=== PATIENT | male | born 1955 | race Caucasian/White ===

== ENCOUNTER 2021-02-19 07:34 | Emergency (ER) | payer MEDICARE ==
[~2021-02-19] VITALS: Ht 177.8 cm; Wt 98.9 kg
[2021-02-19] MEDS ORDERED: ATENOLOL50 MG PO (08:08)
[2021-02-19] MEDS ORDERED: ELIQUIS5 MG PO (08:08)
[2021-02-19] MEDS ORDERED: METFORMIN HCL500 MG PO (08:08)
[2021-02-19] MEDS ORDERED: LOSARTAN-HCTZ1 EAC1 (08:08)
[2021-02-19] MEDS ORDERED: ATORVASTATIN CA20 MG PO (08:08)
[2021-02-19] MEDS ORDERED: PLAVIX75 MG PO (08:08)
[2021-02-19] MEDS ORDERED: AMLODIPINE BESY10 MG PO (08:08)
[2021-02-19 08:26] VITALS: BP 158/98
== END 2021-02-19 08:30 | disposition home or self-care (01) ==
LOC: FSED 08:15
DX: R33.9 Retention of urine, unspecified (principal); I10 Essential (primary) hypertension; E11.9 Type 2 diabetes mellitus without complications; E78.5 Hyperlipidemia, unspecified; I25.10 Atherosclerotic heart disease of native coronary artery without angina pectoris; Z95.1 Presence of aortocoronary bypass graft
CPT/HCPCS: 51700; 81003; 99283

== ENCOUNTER 2021-09-30 14:07 | Emergency (ER) | payer MEDICARE, OTHER ==
[~2021-09-30] VITALS: Ht 177.8 cm; Wt 95.3 kg
[~2021-09-30 14:07] MED LIST: AMLODIPINE BESY10 MG PO; ATENOLOL50 MG PO; ATORVASTATIN CA20 MG PO; ELIQUIS5 MG PO; LOSARTAN-HCTZ1 EAC1; METFORMIN HCL500 MG PO; PLAVIX75 MG PO
[2021-09-30] MEDS ORDERED: SILVER NITRATE SWABS ONE (14:35)
[2021-09-30] MEDS ORDERED: NEOMYCIN/POLYMYX/BACITR OINT 0.9 GM PKT ONE (14:35)
[2021-09-30] MEDS ORDERED: SILVER NITRATE SWABS TOP ONE (14:45)
[2021-09-30] MEDS ORDERED: NEOMYCIN/POLYMYX/BACITR OINT 0.9 GM PKT TOP ONE (14:45)
== END 2021-09-30 14:45 | disposition home or self-care (01) ==
LOC: FSED 14:40
DX: S01.311A Laceration without foreign body of right ear, initial encounter (principal); W45.8XXA Other foreign body or object entering through skin, initial encounter; Y93.E1 Activity, personal bathing and showering; Y92.002 Bathroom of unspecified non-institutional (private) residence as the place of occurrence of the external cause; I10 Essential (primary) hypertension; E11.9 Type 2 diabetes mellitus without complications; E78.5 Hyperlipidemia, unspecified; I25.10 Atherosclerotic heart disease of native coronary artery without angina pectoris; Z95.1 Presence of aortocoronary bypass graft
CPT/HCPCS: 99282

== ENCOUNTER → 2021-12-26 | Outpatient (CLI) | payer MEDICARE ==
[2021-12-21 15:54] LABS: BASOPHILS # (AUTO) 0.1 (0.0-0.1); BASOPHILS % 0.7 % (0.0-1.0); EOSINOPHILS # (AUTO) 0.2 (0.0-0.4); EOSINOPHILS % 2.2 % (0.0-6.0); HEMOGLOBIN 14.5 g/dL (14.0-18.0); LYMPHOCYTES # (AUTO) 1.5 (1.0-3.2); LYMPHOCYTES % 19.8 % (18.0-39.1); MEAN CORPUSCULAR HGB CONC 31.5 g/dL (31-35); MEAN CORPUSCULAR VOLUME 95.2 fL (81-99); MONOCYTES # (AUTO) 0.5 (0.2-0.8); NEUTROPHILS # (AUTO) 5.4 (2.1-6.9); NEUTROPHILS % 70.6 % (38.7-80.0); PLATELET COUNT 157 x10e3/uL (140-360); RED BLOOD COUNT 4.83 x10e6/uL (4.3-5.7); RED CELL DISTRIBUTION WIDTH 14.6 % (11.7-14.4)
[2021-12-21 16:14] LABS: ALBUMIN 3.7 g/dL (3.5-5.0); ALBUMIN/GLOBULIN RATIO 1.2 (0.8-2.0); ANION GAP 13.3 mmol/L (8-16); CALCIUM 8.8 mg/dL (8.4-10.2); CREATININE, SERUM 1.01 mg/dL (0.72-1.25); POTASSIUM 4.3 mmol/L (3.5-5.1)
[~2021-12-26] MED LIST changes: +FINASTERIDE5 MG PO; +FLOMAX0.4 MG PO
== END ==
LOC: CATH LAB 14:47 → LAB 14:47 → EDSTATUS 15:00
PROVIDERS: ATTEND Internal Medicine Interventional Cardiology
DX: I25.10 Atherosclerotic heart disease of native coronary artery without angina pectoris (principal); I73.9 Peripheral vascular disease, unspecified; Z01.812 Encounter for preprocedural laboratory examination; Z20.822 Contact with and (suspected) exposure to COVID-19; Z53.8 Procedure and treatment not carried out for other reasons
CPT/HCPCS: 36415; 80053; 83880; 85025; U0002

== ENCOUNTER → 2022-01-23 | Day surgery (SDC) | payer MEDICARE ==
[2022-01-18 13:36] LABS: BASOPHILS # (AUTO) 0.1 (0.0-0.1); BASOPHILS % 1.1 % (0.0-1.0); EOSINOPHILS # (AUTO) 0.2 (0.0-0.4); EOSINOPHILS % 2.9 % (0.0-6.0); HEMATOCRIT 45.4 % (38.2-49.6); HEMOGLOBIN 14.1 g/dL (14.0-18.0); LYMPHOCYTES # (AUTO) 1.5 (1.0-3.2); LYMPHOCYTES % 20.3 % (18.0-39.1); MEAN CORPUSCULAR HEMOGLOBIN 29.5 pg (28-32); MEAN CORPUSCULAR HGB CONC 31.1 g/dL (31-35); MONOCYTES # (AUTO) 0.4 (0.2-0.8); MONOCYTES % 5.6 % (4.4-11.3); NEUTROPHILS # (AUTO) 5.2 (2.1-6.9); NEUTROPHILS % 69.7 % (38.7-80.0); PLATELET COUNT 161 x10e3/uL (140-360); RED BLOOD COUNT 4.78 x10e6/uL (4.3-5.7); RED CELL DISTRIBUTION WIDTH 14.6 % (11.7-14.4)
[2022-01-18 13:54] LABS: ALBUMIN 3.5 g/dL (3.5-5.0); ALBUMIN/GLOBULIN RATIO 1.1 (0.8-2.0); CREATININE, SERUM 0.85 mg/dL (0.72-1.25)
[~2022-01-23] VITALS: Ht 177.8 cm; Wt 95.3 kg
[~2022-01-23] MED LIST changes: +ALPRAZOLAM 0.5 MG TAB ONE; +DIPHENHYDRAMINE HCL 25 MG CAP ONE; +FENTANYL CITRATE/PF 100MCG/2 ML INJ ONE; +HEPARIN SOD (PORCINE) 1000 UNIT/ML 30ML ONE; +HEPARIN SOD/SOD CHLORIDE 2,000 ML ONE; +IOPAMIDOL 370 MG/ML 200 ML INFUS..BTL INJ ONE; +LIDOCAINE HCL 2% LOCAL 20 ML VIAL ONE; +MIDAZOLAM HCL 2 MG/2 ML VIAL ONE; +SODIUM CHLORIDE 0.9% 1000ML 1,000 ML ONE; +VERAPAMIL HCL 2.5 MG/ML 2 ML VIAL ONE
[2022-01-23 13:50] VITALS: BP 114/88
[2022-01-23 16:25] VITALS: BP 115/95
[2022-01-23 16:40] VITALS: BP 118/74
[2022-01-23 16:55] VITALS: BP 126/93
[2022-01-23 17:08] VITALS: BP 117/83
== END | disposition home or self-care (01) ==
LOC: CATH LAB 13:44
PROVIDERS: ATTEND Internal Medicine Interventional Cardiology
DX: I25.119 Atherosclerotic heart disease of native coronary artery with unspecified angina pectoris (principal); I73.9 Peripheral vascular disease, unspecified; R94.39 Abnormal result of other cardiovascular function study; I10 Essential (primary) hypertension; Z01.812 Encounter for preprocedural laboratory examination; Z20.822 Contact with and (suspected) exposure to COVID-19; Z79.02 Long term (current) use of antithrombotics/antiplatelets; Z79.84 Long term (current) use of oral hypoglycemic drugs; Z79.899 Other long term (current) drug therapy
CPT/HCPCS: 36415 ×2; 75625; 75716; 80053; 82948; 85025; 93458; C1887; C1894; J1644; J2001; J2250; J3010; J7030; Q9967; U0002; 75630; 99152; 99153

== ENCOUNTER 2022-04-01 03:32 | Emergency (ER) | payer MEDICARE ==
[~2022-04-01] VITALS: Ht 177.8 cm; Wt 97.5 kg
[~2022-04-01 03:32] MED LIST changes: -ALPRAZOLAM 0.5 MG TAB ONE; -DIPHENHYDRAMINE HCL 25 MG CAP ONE; -FENTANYL CITRATE/PF 100MCG/2 ML INJ ONE; -HEPARIN SOD (PORCINE) 1000 UNIT/ML 30ML ONE; -HEPARIN SOD/SOD CHLORIDE 2,000 ML ONE; -IOPAMIDOL 370 MG/ML 200 ML INFUS..BTL INJ ONE; -LIDOCAINE HCL 2% LOCAL 20 ML VIAL ONE; -MIDAZOLAM HCL 2 MG/2 ML VIAL ONE; -SODIUM CHLORIDE 0.9% 1000ML 1,000 ML ONE; -VERAPAMIL HCL 2.5 MG/ML 2 ML VIAL ONE
== END 2022-04-01 04:27 | disposition home or self-care (01) ==
LOC: FSED 04:03
DX: R33.9 Retention of urine, unspecified (principal); I10 Essential (primary) hypertension; E11.9 Type 2 diabetes mellitus without complications; E78.5 Hyperlipidemia, unspecified; I25.10 Atherosclerotic heart disease of native coronary artery without angina pectoris; Z95.1 Presence of aortocoronary bypass graft
CPT/HCPCS: 51700; 81003; 99282

== ENCOUNTER 2022-06-30 16:19 | Emergency (ER) | payer MEDICARE ==
[~2022-06-30] VITALS: Ht 177.8 cm; Wt 95.3 kg
[2022-06-30] MEDS ORDERED: CEFUROXIME500 MG PO (17:05)
== END 2022-06-30 17:40 | disposition home or self-care (01) ==
LOC: FSED 16:23
DX: Z46.6 Encounter for fitting and adjustment of urinary device (principal); R33.9 Retention of urine, unspecified; L89.152 Pressure ulcer of sacral region, stage 2; N40.1 Benign prostatic hyperplasia with lower urinary tract symptoms; R18.8 Other ascites; I10 Essential (primary) hypertension; E78.5 Hyperlipidemia, unspecified; E11.9 Type 2 diabetes mellitus without complications; I48.91 Unspecified atrial fibrillation
CPT/HCPCS: 51700; 81003; 87086; 99283